=== PATIENT | female | born 1955 | race African-American/Black ===

== ENCOUNTER 2022-08-03 11:10 | Emergency (ER) | payer MEDICARE ==
[~2022-08-03] VITALS: Ht 160 cm; Wt 89.0 kg
[2022-08-03 11:23] VITALS: BP 131/61
[2022-08-03] MEDS ORDERED: GUAI-450 MT (15:32)
[2022-08-03] MEDS ORDERED: BENZ1LOZ73 MT (15:32)
[2022-08-03] MEDS ORDERED: IBUP-2029 MT (15:32)
== END 2022-08-03 16:00 | disposition home or self-care (01) ==
LOC: ER 11:10
DX: J06.9 Acute upper respiratory infection, unspecified (principal); E11.9 Type 2 diabetes mellitus without complications; I10 Essential (primary) hypertension; Z90.710 Acquired absence of both cervix and uterus
CPT/HCPCS: 99282

== ENCOUNTER 2024-03-21 16:18 | Emergency (ER) | payer BC, MEDICARE ==
[~2024-03-21] VITALS: Ht 160 cm; Wt 86.2 kg
[~2024-03-21 16:18] MED LIST: BENZ1LOZ73 MT; GUAI-450 MT; IBUP-2029 MT
[2024-03-21 16:43] VITALS: O2SAT 98
[2024-03-21] MEDS: IBUPROFEN 600MG TABLET PO ONE (17:41)
[2024-03-21 17:44] VITALS: BP 152/52; PULSE 81; RESP 18
[2024-03-21 18:01] LABS: BASOPHILS % 1.3 % (0.0-2.0); EOSINOPHILS % 0.7 % (0.0-5.0); HEMATOCRIT. 37.8 % (36.0-48.0); HEMOGLOBIN. 12.1 g/dL (12.0-16.0); MEAN CORPUSCULAR HEMOGLOBIN 27.9 pg (28.0-32.0); MEAN CORPUSCULAR HGB CONC 32.1 g/dL (31.0-37.0); MEAN CORPUSCULAR VOLUME 87.1 fL (81.0-99.0); MEAN PLATELET VOLUME 8.5 fl (7.4-10.4); MONOCYTES % 6.7 % (2.0-8.0); NEUTROPHILS % 66.3 % (40.0-76.0); PLATELET 318 x1000/uL (130-400); RED BLOOD CELL COUNT 4.34 mill/uL (4.2-5.4); RED CELL DISTRIBUTION WIDTH 16.2 % (11.6-14.6); WHITE BLOOD COUNT 9.1 x1000/uL (4.5-11.0)
[2024-03-21 18:20] LABS: CHLORIDE 107 mEq/L (98-107); POTASSIUM 3.8 mEq/L (3.5-5.1); SODIUM 139 mEq/L (136-145)
[2024-03-21 18:22] LABS: CALCIUM 9.5 mg/dL (8.7-10.4); CARBON DIOXIDE 27 mEq/L (21-32)
[2024-03-21 18:27] LABS: GLUCOSE 192 mg/dL (70-105); UREA NITROGEN BLOOD 9 mg/dL (9-23)
[2024-03-21 18:43] VITALS: TEMP 98.3
[2024-03-21] MEDS: ACETAMINOPHEN 325MG TABLET PO ONE (18:43)
[2024-03-21 21:02] LABS: CLARITY URINE CLOUDY (CLEAR); COLOR URINE DARK YELLOW (YELLOW); GLUCOSE URINE NEGATIVE (NEGATIVE); KETONES URINE NEGATIVE (NEGATIVE); LEUKOCYTE ESTERASE URINE 3+ (NEGATIVE); NITRITE URINE POSITIVE (NEGATIVE); OCCULT BLOOD URINE 3+ (NEGATIVE); PH URINE 6.5 (4.5-8.0); PROTEIN URINE 1+ (NEGATIVE); SPECIFIC GRAVITY URINE 1.007 (1.005-1.030)
[2024-03-21] MEDS ORDERED: CEFP200T14 MT (21:11)
[2024-03-21 21:19] LABS: BACTERIA URINE 2+; SQUAMOUS EPITHELIAL CELL URINE 1+ /lpf (RARE/1+); WBC URINE 25-50 /hpf (0-2)
== END 2024-03-21 21:50 | disposition home or self-care (01) ==
LOC: ER 16:18
DX: N39.0 Urinary tract infection, site not specified (principal); I10 Essential (primary) hypertension; E11.65 Type 2 diabetes mellitus with hyperglycemia; Z90.710 Acquired absence of both cervix and uterus; Z79.899 Other long term (current) drug therapy
CPT/HCPCS: 36415; 76770; 80048; 81003; 85025; 87077; 87186; 99284

== ENCOUNTER 2024-08-21 13:47 | Emergency (ER) | payer MEDICARE, MEDICAID ==
[~2024-08-21] VITALS: Ht 160 cm; Wt 100.0 kg
[~2024-08-21 13:47] MED LIST changes: +CEFP200T14 MT
[2024-08-21] MEDS: IPRATROPIUM/ALBUTEROL 0.5-3(2.5)MG/3ML NEB HHN ONE (14:27)
[2024-08-21 14:32] VITALS: PULSE 90; RESP 20; O2SAT 99
[2024-08-21] MEDS: PREDNISONE 20MG TABLET PO ONE (14:33)
[2024-08-21 15:25] LABS: BASOPHILS % 0.7 % (0.0-2.0); EOSINOPHILS % 2.1 % (0.0-5.0); HEMATOCRIT. 38.3 % (36.0-48.0); HEMOGLOBIN. 12.2 g/dL (12.0-16.0); LYMPHOCYTES % 30.1 % (20.0-50.0); MEAN CORPUSCULAR HEMOGLOBIN 27.8 pg (28.0-32.0); MEAN CORPUSCULAR HGB CONC 31.8 g/dL (31.0-37.0); MEAN CORPUSCULAR VOLUME 87.4 fL (81.0-99.0); MEAN PLATELET VOLUME 8.7 fl (7.4-10.4); MONOCYTES % 6.2 % (2.0-8.0); NEUTROPHILS % 60.9 % (40.0-76.0); PLATELET 336 x1000/uL (130-400); RED BLOOD CELL COUNT 4.39 mill/uL (4.2-5.4); RED CELL DISTRIBUTION WIDTH 17.2 % (11.6-14.6); WHITE BLOOD COUNT 8.5 x1000/uL (4.5-11.0)
[2024-08-21 15:37] LABS: CHLORIDE 104 mEq/L (98-107); SODIUM 143 mEq/L (136-145)
[2024-08-21 15:38] LABS: CARBON DIOXIDE 30 mEq/L (21-32)
[2024-08-21 15:43] LABS: CREATININE 0.9 mg/dL (0.6-1.0); GLUCOSE 128 mg/dL (70-105); TROPONIN I HIGH SENSITIVITY 4 ng/L (3.0-34); UREA NITROGEN BLOOD 14 mg/dL (9-23)
[2024-08-21] MEDS ORDERED: ALBU18HF2 IH (15:47)
[2024-08-21] MEDS ORDERED: P50 MT (15:47)
[2024-08-21 16:08] VITALS: BP 178/69; PULSE 80; RESP 18; TEMP 36.7; O2SAT 97
== END 2024-08-21 16:09 | disposition home or self-care (01) ==
LOC: ER 13:47
DX: J45.909 Unspecified asthma, uncomplicated (principal); E11.9 Type 2 diabetes mellitus without complications; I10 Essential (primary) hypertension; Z79.899 Other long term (current) drug therapy; Z90.710 Acquired absence of both cervix and uterus; Z98.890 Other specified postprocedural states
CPT/HCPCS: 99285; 71045; 80048; 83880; 85025; 84484; 36415; 94640; 93005; J7512

== ENCOUNTER 2024-12-07 12:49 | Emergency (ER) | payer MEDICARE, MEDICAID ==
[~2024-12-07] VITALS: Ht 160 cm; Wt 97.0 kg
[~2024-12-07 12:49] MED LIST changes: +ALBU18HF2 IH; +P50 MT
[2024-12-07 13:00] VITALS: O2SAT 96
[2024-12-07] MEDS ORDERED: LIDO700A30 TP (16:25)
[2024-12-07] MEDS: IBUPROFEN 600MG TABLET PO ONE (16:41)
[2024-12-07 16:48] VITALS: BP 133/57; PULSE 78; RESP 18; TEMP 36.7; O2SAT 98
== END 2024-12-07 16:49 | disposition home or self-care (01) ==
LOC: ER 12:49
DX: J06.9 Acute upper respiratory infection, unspecified (principal); M25.532 Pain in left wrist; E11.9 Type 2 diabetes mellitus without complications; E78.00 Pure hypercholesterolemia, unspecified; I10 Essential (primary) hypertension; Z90.710 Acquired absence of both cervix and uterus
CPT/HCPCS: 71045; 73110; 99284